=== PATIENT | male | born 1990 | race Asian ===

== ENCOUNTER 2016-08-14 15:54 | Emergency (ER) | payer OTHER ==
--- NOTE | ~2016-08-14 | CT2 ---
[facility] A Service of [facility] RADIOLOGY TEXT RESULTS PATIENT: LALA GARCIA LOCATION: [facility] : [birth year] UNIT #: [id number] AGE: [address]: Dee Khanna MD SEX: M ORDER DR: [id number] [facility] [address] [place], [place] [address] [id number] MR#: [id number] Acc #: [id number] NAME: LALA GARCIA : 1990 SEX: M STUDY DATE/TIME: 08/14/2016 21:08 UNIT: DEONNA ROOM: STUDY DESCRIPTION: CT Abd and Pelv W Cont Attending Physician: Dee Khanna M.D. Ordering Physician: Tomer Proctor M.D. Primary Care Physician: Primary Care Physician No MEDICAL IMAGING REPORT This report is preliminary unless electronic signature is present EXAM CT abdomen and pelvis INDICATIONS Abdominal pain, nausea and vomiting for [address] of the abdomen and pelvis utilizing 100 mL Isovue-370 IV contrast. Coronal and sagittal reconstructions were obtained. This CT exam was performed with one or more of the following radiation dose reduction techniques: Automatic exposure control, adjustment of mA and/or kV according to patient size, and iterative reconstruction. COMPARISON CT abdomen and pelvis dated 09/01/2015. FINDINGS ABDOMEN: There is diffusely diminished attenuation throughout the hepatic parenchyma. This suggests background steatosis. The gallbladder is not distended. Pancreas, spleen, adrenal glands, and kidneys are within normal limits. No hydronephrosis. The bowel is not dilated. The appendix is surgically absent. The abdominal aorta is normal in caliber. PELVIS: The bladder is unremarkable. No enlarged pelvic or inguinal lymph nodes. Both testicles are identified within the inguinal canal. This is presumably due to a prominent cremasteric reflex, however confirmation with physical exam is recommended to differentiate from undescended testes. No acute osseous abnormalities. [facility] A Service of [facility] RADIOLOGY TEXT RESULTS PATIENT: LALA GARCIA LOCATION: [facility] : [birth year] UNIT #: [id number] AGE: [address]: Dee Khanna MD SEX: M ORDER DR: IMPRESSION 1. Hepatic steatosis. 2. No acute findings in the abdomen or pelvis. 3. Both testicles are in the bilateral inguinal canals. This is presumably due to a prominent cremasteric reflex, however I would recommend correlation with physical exam to differentiate from undescended bilateral testicles. Dictated by... Avni Altman M.D. THIS IS AN ELECTRONICALLY VERIFIED REPORT Avni Altman M.D. at 08/15/2016 2:26 AM MOMO/chele TD: 08/15/2016 01:43 JOB #: [id number] MEDICAL IMAGING REPORT Page 1 of 1 COPY
[~2016-08-14 15:54] MED LIST: FLAGYL PO; NORCO 5/325MG PO; PHENERGAN25 M1 PO
[2016-08-14 19:01] LABS: BASOPHIL# 0.1 X10e3 (0-0.3); BASOPHIL% 0.5 % (0-2.5); EOSINOPHIL% 0.1 % (0.0-7.0); HEMATOCRIT 43.9 % (38.0-50.0); HEMOGLOBIN 14.3 gm/dL (13.0-16.0); LYMPHOCYTE# 1.6 X10e3 (1.0-3.5); LYMPHOCYTE% 7.6 % (17.0-45.0); MEAN CELL VOLUME 87.4 FL (83-96); MEAN CORPUSCULAR HEMOGLOBIN 28.4 PG (28-34); MEAN CORPUSCULAR HGB CONC 32.6 g/dL (30-36); MEAN PLATELET VOLUME 8.8 FL (6.5-11.5); MONOCYTE# 0.4 X10e3 (0-1.0); MONOCYTE% 1.9 % (3.0-12.0); NEUTROPHIL# 18.5 X10e3 (1.5-7.1); NEUTROPHIL% 89.9 % (40-75); PLATELET COUNT 259 X10e3 (140-420); RED BLOOD COUNT 5.02 X10e (3.90-5.60); WHITE BLOOD COUNT 20.6 X10e3 (4.0-10.5)
[2016-08-14 19:16] LABS: DIFF IND YES
[2016-08-14 19:24] LABS: BILIRUBIN, DIRECT 0.1 mg/dL (0.0-0.2); BILIRUBIN,INDIRECT 0.4 mg/dL (0.0-0.9); BILIRUBIN,TOTAL 0.5 mg/dL (0.2-2.0); CALCIUM SERUM 9.4 mg/dL (8.4-10.2); CREATININE SERUM 0.8 mg/dL (0.6-1.4); GLOM FILT RATE Estimated 123.3 mL/min (>60); POTASSIUM 3.5 mmol/L (3.5-5.1); PROTEIN TOTAL SERUM 8.2 g/dL (6.0-8.3)
[2016-08-14 19:40] LABS: ANISOCYTOSIS SL; PLATELET ESTIMATE NORMAL (NORMAL)
[2016-08-14 22:34] LABS: URINE SOURCE CLEAN CATCH
[2016-08-14 22:35] LABS: URINE APPEARANCE CLEAR; URINE BILIRUBIN NEG (NEG); URINE BLOOD NEG (NEG); URINE COLOR YELLOW; URINE GLUCOSE NEG (NEG); URINE KETONE NEG (NEG); URINE LEUKOCYTE ESTERASE NEG (NEG); URINE NITRATE NEG (NEG); URINE PROTEIN NEG (NEG); URINE SPECIFIC GRAVITY 1.057 (1.003-1.035); URINE UROBILINOGEN 0.2 MG/DL (NEG)
[2016-08-14 22:38] LABS: CULTURE INDICATED? NO
== END 2016-08-14 23:25 | disposition home or self-care (01) ==
LOC: CED 15:54
PROVIDERS: Emergency Medicine
DX: R11.2 Nausea with vomiting, unspecified (principal); F17.210 Nicotine dependence, cigarettes, uncomplicated; Z90.89 Acquired absence of other organs
CPT/HCPCS: 36415; 74177; 80048; 80076; 81003; 83690; 85025; 96361; 96374; 96375; 99284; J2405; Q9967